=== PATIENT | female | born 1980 | race Caucasian/White ===

== ENCOUNTER 2018-11-15 11:27 | Emergency (ER) | payer OTHER ==
[~2018-11-15] VITALS: Ht 157.5 cm; Wt 104.3 kg
[~2018-11-15 11:27] MED LIST: CIPRO500 MG PO; FLAGYL500MG PO; LEVSIN/SL0.125 MG SL; NEURONTIN300 MG PO; SULFAMETHOXAZOL1 TA6 PO
== END 2018-11-15 15:18 | disposition home or self-care (01) ==
LOC: ER 11:27
DX: L29.8 Other pruritus (principal); T36.4X5A Adverse effect of tetracyclines, initial encounter

== ENCOUNTER 2022-12-05 23:11 | Emergency (ER) | payer OTHER ==
[~2022-12-05] VITALS: Ht 157.5 cm; Wt 104.3 kg
== END 2022-12-06 06:10 | disposition home or self-care (01) ==
LOC: ER 23:11
DX: R10.2 Pelvic and perineal pain (principal); Z88.0 Allergy status to penicillin
CPT/HCPCS: 36415; 74177; Q9965

== ENCOUNTER 2022-12-18 17:09 | Emergency (ER) | payer OTHER ==
[~2022-12-18] VITALS: Ht 157.5 cm; Wt 104.3 kg
== END 2022-12-18 23:03 | disposition home or self-care (01) ==
LOC: ER 17:09
DX: R10.2 Pelvic and perineal pain (principal)

== ENCOUNTER 2023-04-14 07:31 | Outpatient (CLI) | payer OTHER | END 2023-04-14 07:35 | disposition home or self-care (01) | LOC: LAB 07:31 | PROVIDERS: ATTEND General Practice | DX: D68.8 Other specified coagulation defects (principal); Z88.0 Allergy status to penicillin ==

== ENCOUNTER 2023-04-30 11:45 | Inpatient (IN) | payer OTHER ==
[~2023-04-30] VITALS: Ht 157.5 cm; Wt 112.0 kg
[~2023-04-30 11:45] MED LIST changes: +A/F PAIN RELIE500 MG PO; +GABAPENTIN100 M2 PO; +ORILISSA150 MG PO
[2023-05-06 18:13] LABS: ABG PH 7.393 (7.35-7.45); ABG PO2 191.3 mmHg (80-100); ABG pCO2 34.5 mmHg (35-45); BASE EXCESS -3.5 mmol/l; BICARBONATE 20.6 mmol/l (23-25); SaO2 99.6 %; Tco2 21.6 mmol/l
[2023-05-06 18:14] LABS: allen test SATISFACTORY; o2 36 %; puncture site RADIAL RIGHT
[2023-05-07 07:21] LABS: ALBUMIN 2.9 gm/dL (3.4-5.0); CALCIUM 8.3 mg/dL (8.5-10.1); CREATININE SERUM 0.6 mg/dL (0.55-1.02); GFR 109.63; MAGNESIUM 1.7 mg/dL (1.8-2.4); PHOSPHOROUS 2.4 mg/dL (2.5-4.9); POTASSIUM 4.25 mEq/L (3.5-5.1)
[2023-05-07 09:39] LABS: HEMATOCRIT 34.9 % (36.0-45.00); HEMOGLOBIN 11.7 g/dL (12.0-15.00); MEAN CORPUSCULAR HEMOGLOBIN 27.8 pg (27.00-32.0); MEAN CORPUSCULAR HGB CONC 33.5 g/dl (32.0-36.0); PLATELET COUNT 353 K/uL (150-450); RED CELL DISTRIBUTION WIDTH 14.6 % (11.5-14.5)
[2023-05-08 07:39] LABS: HEMATOCRIT 32.5 % (36.0-45.00); HEMOGLOBIN 10.7 g/dL (12.0-15.00); MEAN CORPUSCULAR HEMOGLOBIN 27.7 pg (27.00-32.0); PLATELET COUNT 279 K/uL (150-450); RED BLOOD COUNT 3.87 M/uL (4.00-6.00); RED CELL DISTRIBUTION WIDTH 14.8 % (11.5-14.5)
[2023-05-08 07:58] LABS: CALCIUM 8.1 mg/dL (8.5-10.1); CREATININE SERUM 0.62 mg/dL (0.55-1.02); GFR 105.56; MAGNESIUM 2.4 mg/dL (1.8-2.4); POTASSIUM 4.19 mEq/L (3.5-5.1)
[2023-05-08 08:38] LABS: PHOSPHOROUS 1.8 mg/dL (2.5-4.9)
[2023-05-09 09:05] LABS: CALCIUM 8.3 mg/dL (8.5-10.1); CREATININE SERUM 0.61 mg/dL (0.55-1.02); GFR 107.56; MAGNESIUM 2.2 mg/dL (1.8-2.4); PHOSPHOROUS 3.1 mg/dL (2.5-4.9); POTASSIUM 4.34 mEq/L (3.5-5.1)
[2023-05-09 10:21] LABS: HEMATOCRIT 32.9 % (36.0-45.00); HEMOGLOBIN 10.9 g/dL (12.0-15.00); MEAN CELL VOLUME 85.9 fL (80.00-100.00); MEAN CORPUSCULAR HEMOGLOBIN 28.5 pg (27.00-32.0); MEAN CORPUSCULAR HGB CONC 33.2 g/dl (32.0-36.0); PLATELET COUNT 296 K/uL (150-450); RED BLOOD COUNT 3.83 M/uL (4.00-6.00); RED CELL DISTRIBUTION WIDTH 14.4 % (11.5-14.5)
== END 2023-05-09 11:13 | disposition home or self-care (01) | DRG 331 ==
LOC: SURG 05-06 05:30 → O/R 05-06 05:30 → SURH 05-06 11:45 → OB/GYN 05-06 14:02 → SURG 05-06 18:07 → SURH 05-08 14:51 → SURG 05-08 15:05 → SURH 05-08 16:49
PROVIDERS: Internal Medicine Geriatric Medicine; Obstetrics & Gynecology Gynecology; ADMIT Surgery; ATTEND Surgery
PROC: 0DNN4ZZ Release Sigmoid Colon, Percutaneous Endoscopic Approach (ICD-10-PCS; 2023-05-06)
PROC: 0TN74ZZ Release Left Ureter, Percutaneous Endoscopic Approach (ICD-10-PCS; 2023-05-06)
PROC: 0TN64ZZ Release Right Ureter, Percutaneous Endoscopic Approach (ICD-10-PCS; 2023-05-06)
PROC: 0DJD8ZZ Inspection of Lower Intestinal Tract, Via Natural or Artificial Opening Endoscopic (ICD-10-PCS; 2023-05-06)
PROC: 0DTN4ZZ Resection of Sigmoid Colon, Percutaneous Endoscopic Approach (ICD-10-PCS; principal; 2023-05-06 13:15)
PROC: 0DBP4ZZ Excision of Rectum, Percutaneous Endoscopic Approach (ICD-10-PCS; 2023-05-06 13:15)
DX: N80.529 Endometriosis of the sigmoid colon, unspecified depth (principal); K57.30 Diverticulosis of large intestine without perforation or abscess without bleeding